=== PATIENT | male | born 1990 | race Two or more races ===

== ENCOUNTER 2023-03-14 02:44 | Inpatient (IN) | payer MEDICAID, OTHER ==
[~2023-03-14] VITALS: Ht 180.3 cm; Wt 95.4 kg
[2023-03-14 03:41] LABS: Basophils # (auto) 0.1 10 ^3/uL (0-0.2); Basophils % (auto) 0.4 % (0.0-2.0); Eosinophils # (auto) 0 10 ^3/uL (0-0.8); Hematocrit 41.8 % (41.0-53.0); Hemoglobin 14.2 g/dL (13.5-17.5); Lymphocytes # (auto) 1.4 10 ^3/uL (0.4-5.4); Lymphocytes % (auto) 7.7 % (10.0-50.0); Mean Corpuscular Hemoglobin 28.3 pg (28.0-32.0); Mean Corpuscular Volume 83.2 fL (80.0-100.0); Monocytes # (auto) 2.1 10 ^3/uL (0-1.3); Monocytes % (auto) 11.7 % (0.0-12.0); Neutrophils # (auto) 14.4 10 ^3/uL (1.6-8.6); Neutrophils % (auto) 80.2 % (37.0-80.0); Red Blood Cells 5.02 10^6/uL (4.5-5.90); Red Cell Distribution Width 14.7 % (11.8-14.3); White Blood Cell 17.9 10^3/uL (4.4-10.8)
[2023-03-14 04:01] LABS: Potassium 3.5 mmol/L (3.5-5.1)
[2023-03-14 04:06] LABS: Urine Bacteria NONE SEEN /hpf (None Seen); Urine Blood Negative /uL (Negative); Urine Specific Gravity 1.006 (1.001-1.035); Urine WBC 1 /hpf (0 - 3)
[2023-03-14 04:08] LABS: Albumin 3.1 g/dL (3.4-5.0); BUN/Creatinine Ratio 6.7 (10.0-20.0); Bilirubin, Total 0.7 mg/dL (0.2-1.0); Calcium 9.2 mg/dL (8.5-10.1); Total Protein 8.2 g/dL (6.4-8.2)
[2023-03-14] MEDS ORDERED: metroNIDAZOLE 500MG/100ML 100 ML IV ONE (04:30)
[2023-03-14] MEDS ORDERED: PIPERACILLIN-TAZOB 3.375GM 100 ML IV ONE (04:30)
[2023-03-14] MEDS ORDERED: LACTATED RINGER'S 2,850 ML IV ONE (04:30)
[2023-03-14] MEDS ORDERED: ONDANSETRON HCL 4 MG/2 ML VIAL IV ONE ×3 (06:00→10:30)
[2023-03-14] MEDS ORDERED: MORPHINE SULFATE 4 MG/ML SYR/VIAL IV ONE ×3 (06:00→10:30)
[2023-03-14 06:59] LABS: INR 1.14 (0.9-1.15)
[2023-03-14 09:06] VITALS: PULSE 98; RESP 20; O2SAT 97
[2023-03-14] MEDS ORDERED: ONDANSETRON HCL 4 MG/2 ML VIAL IV PRN (10:30)
[2023-03-14] MEDS: SODIUM CHLORIDE 0.9% 1,000 ML IV SCH ×2 (10:44→17:13)
[2023-03-14] MEDS ORDERED: fentaNYL CITRATE 100 MCG/2 ML VL IV ONE (11:00)
[2023-03-14] MEDS ORDERED: MIDAZOLAM HCL 2MG/2ML 2ml VIAL (1mg/ml) IV ONE (11:00)
[2023-03-14 11:34] LABS: Alcohol, Urine < 3.0 mg/dL (0-10); Amphetamine Screen, Urine NEGATIVE (NEGATIVE); Barbiturate Scree,Urine NEGATIVE (NEGATIVE); Benzodiazephine Screen, Urine NEGATIVE (NEGATIVE); Cannabinoid Screen, Urine POSITIVE (NEGATIVE); Cocaine Screen, Urine NEGATIVE (NEGATIVE); Opiate Scree,Urine NEGATIVE (NEGATIVE); Phencyclidine Screen, Urine NEGATIVE (NEGATIVE)
[2023-03-14] MEDS ORDERED: LIDOCAINE 2%HCL (LOCAL ANESTH.) INJ 10ml MDV ONE (12:59)
[2023-03-14] MEDS: PIPERACILLIN-TAZOB 3.375GM 100 ML IV SCH ×2 (13:35→18:09)
[2023-03-14] MEDS: MORPHINE SULFATE INJ 2 MG/ml SYRG IV PRN (13:36)
[2023-03-14] MEDS: metroNIDAZOLE 500MG/100ML 100 ML IV SCH ×2 (15:12→22:11)
[2023-03-15] MEDS: SODIUM CHLORIDE 0.9% 1,000 ML IV SCH ×4 (00:34→20:18)
[2023-03-15] MEDS: PIPERACILLIN-TAZOB 3.375GM 100 ML IV SCH ×4 (00:35→18:20)
[2023-03-15] MEDS: metroNIDAZOLE 500MG/100ML 100 ML IV SCH ×3 (06:00→22:23)
[2023-03-15 06:34] LABS: Basophils # (auto) 0 10 ^3/uL (0-0.2); Basophils % (auto) 0.2 % (0.0-2.0); Eosinophils # (auto) 0 10 ^3/uL (0-0.8); Hematocrit 38.6 % (41.0-53.0); Hemoglobin 12.9 g/dL (13.5-17.5); Lymphocytes % (auto) 16.1 % (10.0-50.0); Mean Corpuscular Hemoglobin 27.9 pg (28.0-32.0); Mean Corpuscular Hgb Conc. 33.4 g/dL (32.0-36.0); Mean Corpuscular Volume 83.7 fL (80.0-100.0); Monocytes % (auto) 8.3 % (0.0-12.0); Neutrophils # (auto) 9.4 10 ^3/uL (1.6-8.6); Neutrophils % (auto) 75.4 % (37.0-80.0); Red Blood Cells 4.61 10^6/uL (4.5-5.90); White Blood Cell 12.5 10^3/uL (4.4-10.8)
[2023-03-15 06:42] LABS: Potassium 3.5 mmol/L (3.5-5.1)
[2023-03-15 06:49] LABS: Albumin 2.5 g/dL (3.4-5.0); BUN/Creatinine Ratio 10.7 (10.0-20.0); Bilirubin, Total 0.7 mg/dL (0.2-1.0); Calcium 8.6 mg/dL (8.5-10.1); Total Protein 7.3 g/dL (6.4-8.2)
[2023-03-15 09:13] VITALS: PULSE 76; RESP 25; O2SAT 98
[2023-03-15] MEDS ORDERED: PANTOPRAZOLE 40 MG/10 ML VIAL INJ IV SCH (10:00)
[2023-03-15 19:25] VITALS: PULSE 79; RESP 23; O2SAT 98
[2023-03-16] VITALS (7 sets, daily range): BP systolic 133–151; BP diastolic 75–91; PULSE 67–80; RESP 17–19; TEMP 97.4–98.6; O2SAT 95–98
[2023-03-16] MEDS: PIPERACILLIN-TAZOB 3.375GM 100 ML IV SCH ×2 (00:47→06:40)
[2023-03-16] MEDS: MORPHINE SULFATE INJ 2 MG/ml SYRG IV PRN (02:04)
[2023-03-16] MEDS: SODIUM CHLORIDE 0.9% 1,000 ML IV SCH ×4 (02:05→18:45)
[2023-03-16 06:05] LABS: Basophils # (auto) 0 10 ^3/uL (0-0.2); Basophils % (auto) 0.2 % (0.0-2.0); Eosinophils # (auto) 0 10 ^3/uL (0-0.8); Eosinophils % (auto) 0.1 % (0.0-7.0); Hematocrit 38.6 % (41.0-53.0); Hemoglobin 12.7 g/dL (13.5-17.5); Lymphocytes # (auto) 1.3 10 ^3/uL (0.4-5.4); Lymphocytes % (auto) 10.4 % (10.0-50.0); Mean Corpuscular Hemoglobin 27.7 pg (28.0-32.0); Monocytes % (auto) 8.3 % (0.0-12.0); Red Blood Cells 4.59 10^6/uL (4.5-5.90); Red Cell Distribution Width 15.1 % (11.8-14.3); White Blood Cell 12.3 10^3/uL (4.4-10.8)
[2023-03-16 06:16] LABS: Potassium 3.7 mmol/L (3.5-5.1)
[2023-03-16 06:25] LABS: Albumin 2.5 g/dL (3.4-5.0); BUN/Creatinine Ratio 14.3 (10.0-20.0); Bilirubin, Total 0.5 mg/dL (0.2-1.0); Calcium 8.1 mg/dL (8.5-10.1)
[2023-03-16] MEDS: metroNIDAZOLE 500MG/100ML 100 ML IV SCH ×3 (06:40→20:58)
[2023-03-16] MEDS ORDERED: CEFTRIAXONE SODIUM 2 GM in D5W 5% 100 ML IV ONE (12:00)
[2023-03-17] MEDS: MORPHINE SULFATE INJ 2 MG/ml SYRG IV PRN ×2 (04:53→23:52)
[2023-03-17 05:00] VITALS: BP 132/83; PULSE 69; RESP 18; TEMP 98.3; O2SAT 95
[2023-03-17] MEDS: metroNIDAZOLE 500MG/100ML 100 ML IV SCH ×3 (05:48→21:59)
[2023-03-17 06:42] LABS: Basophils # (auto) 0 10 ^3/uL (0-0.2); Basophils % (auto) 0.2 % (0.0-2.0); Eosinophils # (auto) 0 10 ^3/uL (0-0.8); Eosinophils % (auto) 0.2 % (0.0-7.0); Hematocrit 39.7 % (41.0-53.0); Hemoglobin 13.2 g/dL (13.5-17.5); Lymphocytes # (auto) 1.4 10 ^3/uL (0.4-5.4); Monocytes % (auto) 7.4 % (0.0-12.0)
[2023-03-17 06:44] LABS: Lymphocytes % (auto) 12.3 % (10.0-50.0); Mean Corpuscular Hemoglobin 27.8 pg (28.0-32.0); Mean Corpuscular Hgb Conc. 33.4 g/dL (32.0-36.0); Mean Corpuscular Volume 83.4 fL (80.0-100.0); Monocytes # (auto) 0.8 10 ^3/uL (0-1.3); Neutrophils # (auto) 9.1 10 ^3/uL (1.6-8.6); Neutrophils % (auto) 79.9 % (37.0-80.0); Nucleated Red Blood Cells % 0.1 %; Red Blood Cells 4.75 10^6/uL (4.5-5.90); Red Cell Distribution Width 15.1 % (11.8-14.3); White Blood Cell 11.3 10^3/uL (4.4-10.8)
[2023-03-17 06:47] LABS: Calcium 8.5 mg/dL (8.5-10.1); Potassium 3.8 mmol/L (3.5-5.1)
[2023-03-17 06:53] LABS: Albumin 2.7 g/dL (3.4-5.0); BUN/Creatinine Ratio 9.5 (10.0-20.0); Bilirubin, Total 0.4 mg/dL (0.2-1.0); Total Protein 7.4 g/dL (6.4-8.2)
[2023-03-17 08:00] VITALS: PULSE 74; PULSE 80; RESP 18; O2SAT 97
[2023-03-17 09:00] VITALS: BP 164/97; PULSE 74; RESP 17; TEMP 98.3; O2SAT 97
[2023-03-17] MEDS: CEFTRIAXONE SODIUM 2 GM in D5W 5% 100 ML IV SCH (11:14)
[2023-03-17] MEDS: ENALAPRIL MALEATE 2.5 MG TAB PO SCH ×2 (11:14→22:00)
[2023-03-17] MEDS: SODIUM CHLORIDE 0.9% 1,000 ML IV SCH ×2 (11:15→22:00)
[2023-03-17 17:00] VITALS: BP 158/91; PULSE 84; RESP 17; TEMP 98.4; O2SAT 98
[2023-03-17] MEDS: hydrALAZINE HCL 20 MG/ML VL IV PRN (17:56)
[2023-03-17 20:00] VITALS: PULSE 96
[2023-03-17 22:00] VITALS: BP 151/97; PULSE 124; RESP 20; TEMP 99; O2SAT 96
[2023-03-18] VITALS (9 sets, daily range): BP systolic 128–154; BP diastolic 66–95; PULSE 85–112; RESP 17–20; TEMP 97.5–98.6; O2SAT 95–97
[2023-03-18] MEDS: metroNIDAZOLE 500MG/100ML 100 ML IV SCH ×3 (06:14→21:35)
[2023-03-18] MEDS: hydrALAZINE HCL 20 MG/ML VL IV PRN (06:17)
[2023-03-18] MEDS: CEFTRIAXONE SODIUM 2 GM in D5W 5% 100 ML IV SCH (09:20)
[2023-03-18] MEDS: ENALAPRIL MALEATE 2.5 MG TAB PO SCH ×2 (09:24→21:35)
[2023-03-18] MEDS: SODIUM CHLORIDE 0.9% 1,000 ML IV SCH ×2 (13:48→23:51)
[2023-03-19] VITALS (7 sets, daily range): BP systolic 122–154; BP diastolic 71–87; PULSE 79–94; RESP 17–19; TEMP 98.2–98.4; O2SAT 95–100
[2023-03-19] MEDS: metroNIDAZOLE 500MG/100ML 100 ML IV SCH ×3 (06:00→22:08)
[2023-03-19] MEDS: ENALAPRIL MALEATE 2.5 MG TAB PO SCH ×2 (09:12→22:07)
[2023-03-19] MEDS: CEFTRIAXONE SODIUM 2 GM in D5W 5% 100 ML IV SCH (09:12)
[2023-03-19] MEDS: SODIUM CHLORIDE 0.9% 1,000 ML IV SCH (13:25)
[2023-03-20] VITALS (7 sets, daily range): BP systolic 127–146; BP diastolic 64–89; PULSE 66–99; RESP 15–20; TEMP 97.9–99.3; O2SAT 95–100
[2023-03-20] MEDS: ACETAMINOPHEN 325 MG TAB PO PRN ×3 (04:30→20:07)
[2023-03-20] MEDS: metroNIDAZOLE 500MG/100ML 100 ML IV SCH ×3 (05:33→21:12)
[2023-03-20] MEDS: MORPHINE SULFATE INJ 2 MG/ml SYRG IV PRN (07:00)
[2023-03-20] MEDS: ENALAPRIL MALEATE 2.5 MG TAB PO SCH ×2 (09:13→21:13)
[2023-03-20] MEDS: CEFTRIAXONE SODIUM 2 GM in D5W 5% 100 ML IV SCH (09:14)
[2023-03-21] MEDS: ACETAMINOPHEN 325 MG TAB PO PRN ×2 (02:07→19:51)
[2023-03-21 05:00] VITALS: BP 124/74; PULSE 94; RESP 18; TEMP 98; O2SAT 99
[2023-03-21 06:19] LABS: Basophils # (auto) 0 10 ^3/uL (0-0.2); Eosinophils # (auto) 0 10 ^3/uL (0-0.8)
[2023-03-21] MEDS: metroNIDAZOLE 500MG/100ML 100 ML IV SCH ×3 (06:20→22:17)
[2023-03-21 06:21] LABS: Basophils % (auto) 0.1 % (0.0-2.0); Mean Corpuscular Hemoglobin 28.1 pg (28.0-32.0); Mean Corpuscular Hgb Conc. 33.4 g/dL (32.0-36.0); Monocytes # (auto) 1.3 10 ^3/uL (0-1.3); Monocytes % (auto) 7.1 % (0.0-12.0); Neutrophils # (auto) 14.9 10 ^3/uL (1.6-8.6); Neutrophils % (auto) 81.8 % (37.0-80.0); Red Blood Cells 5.36 10^6/uL (4.5-5.90); Red Cell Distribution Width 14.9 % (11.8-14.3); White Blood Cell 18.2 10^3/uL (4.4-10.8)
[2023-03-21 06:27] LABS: Potassium 4.6 mmol/L (3.5-5.1)
[2023-03-21 06:34] LABS: Albumin 3.1 g/dL (3.4-5.0); BUN/Creatinine Ratio 6.3 (10.0-20.0); Bilirubin, Total 0.5 mg/dL (0.2-1.0); Calcium 8.9 mg/dL (8.5-10.1); Magnesium 2.7 mg/dL (1.6-2.6); Total Protein 8.1 g/dL (6.4-8.2)
[2023-03-21 08:23] VITALS: BP 136/84; PULSE 78; RESP 20; TEMP 97.7; O2SAT 100
[2023-03-21] MEDS: CEFTRIAXONE SODIUM 2 GM in D5W 5% 100 ML IV SCH (09:19)
[2023-03-21] MEDS: ENALAPRIL MALEATE 2.5 MG TAB PO SCH ×2 (09:19→22:16)
[2023-03-21 13:00] VITALS: BP 118/66; PULSE 108; RESP 20; TEMP 98; O2SAT 96
[2023-03-21 17:00] VITALS: BP 129/79; PULSE 92; RESP 19; TEMP 98.3; O2SAT 98
[2023-03-21 22:00] VITALS: BP 155/82; PULSE 82; RESP 22; TEMP 98.5; O2SAT 97
[2023-03-22 05:00] VITALS: BP 120/81; PULSE 78; RESP 22; TEMP 98.3; O2SAT 99
[2023-03-22] MEDS: metroNIDAZOLE 500MG/100ML 100 ML IV SCH ×3 (05:40→22:25)
[2023-03-22] MEDS: ACETAMINOPHEN 325 MG TAB PO PRN (05:40)
[2023-03-22 06:25] LABS: Basophils # (auto) 0 10 ^3/uL (0-0.2); Basophils % (auto) 0.3 % (0.0-2.0); Eosinophils % (auto) 0.4 % (0.0-7.0); Lymphocytes # (auto) 2.4 10 ^3/uL (0.4-5.4); Mean Corpuscular Hemoglobin 27.8 pg (28.0-32.0); Neutrophils % (auto) 70.8 % (37.0-80.0)
[2023-03-22 06:27] LABS: Eosinophils # (auto) 0.1 10 ^3/uL (0-0.8); Hematocrit 42.4 % (41.0-53.0); Hemoglobin 14.1 g/dL (13.5-17.5); Lymphocytes % (auto) 20.2 % (10.0-50.0); Mean Corpuscular Hgb Conc. 33.3 g/dL (32.0-36.0); Mean Corpuscular Volume 83.6 fL (80.0-100.0); Monocytes % (auto) 8.3 % (0.0-12.0); Neutrophils # (auto) 8.4 10 ^3/uL (1.6-8.6); Nucleated Red Blood Cells % 0.1 %; Red Blood Cells 5.07 10^6/uL (4.5-5.90); Red Cell Distribution Width 15.1 % (11.8-14.3); White Blood Cell 11.8 10^3/uL (4.4-10.8)
[2023-03-22 09:00] VITALS: BP 133/78; PULSE 78; RESP 18; TEMP 98.2; O2SAT 99
[2023-03-22] MEDS: CEFTRIAXONE SODIUM 2 GM in D5W 5% 100 ML IV SCH (10:12)
[2023-03-22] MEDS: ENALAPRIL MALEATE 2.5 MG TAB PO SCH ×2 (10:13→22:26)
[2023-03-22 13:00] VITALS: BP 150/89; PULSE 78; RESP 18; TEMP 98.7; O2SAT 97
[2023-03-22 17:00] VITALS: BP 159/66; PULSE 87; RESP 18; TEMP 98.2; O2SAT 99
[2023-03-22 20:00] VITALS: PULSE 83; RESP 18
[2023-03-22 22:00] VITALS: BP 150/84; PULSE 83; RESP 18; TEMP 98.7; O2SAT 98
[2023-03-23] MEDS: metroNIDAZOLE 500MG/100ML 100 ML IV SCH ×3 (02:10→18:55)
[2023-03-23 05:00] VITALS: BP 132/76; PULSE 78; RESP 18; TEMP 98.6; O2SAT 100
[2023-03-23 06:50] LABS: Basophils # (auto) 0.1 10 ^3/uL (0-0.2); Eosinophils # (auto) 0.1 10 ^3/uL (0-0.8); Eosinophils % (auto) 0.6 % (0.0-7.0); Monocytes # (auto) 0.6 10 ^3/uL (0-1.3); Neutrophils # (auto) 6.3 10 ^3/uL (1.6-8.6); Nucleated Red Blood Cells % 0.1 %
[2023-03-23 06:52] LABS: Basophils % (auto) 0.6 % (0.0-2.0); Hematocrit 45.2 % (41.0-53.0); Hemoglobin 15.4 g/dL (13.5-17.5); Lymphocytes # (auto) 2.3 10 ^3/uL (0.4-5.4); Lymphocytes % (auto) 24.4 % (10.0-50.0); Mean Corpuscular Hemoglobin 28.3 pg (28.0-32.0); Mean Corpuscular Volume 83.3 fL (80.0-100.0); Monocytes % (auto) 6.9 % (0.0-12.0); Neutrophils % (auto) 67.5 % (37.0-80.0); Red Blood Cells 5.43 10^6/uL (4.5-5.90); Red Cell Distribution Width 14.9 % (11.8-14.3); White Blood Cell 9.3 10^3/uL (4.4-10.8)
[2023-03-23 06:59] LABS: Calcium 9.4 mg/dL (8.5-10.1); Potassium 4.6 mmol/L (3.5-5.1)
[2023-03-23 07:03] LABS: BUN/Creatinine Ratio 12.8 (10.0-20.0)
[2023-03-23 09:00] VITALS: BP 135/79; PULSE 77; RESP 18; TEMP 98.3; O2SAT 94
[2023-03-23] MEDS: CEFTRIAXONE SODIUM 2 GM in D5W 5% 100 ML IV SCH (10:59)
[2023-03-23] MEDS: ENALAPRIL MALEATE 2.5 MG TAB PO SCH ×2 (10:59→21:29)
[2023-03-23 17:00] VITALS: BP 119/75; PULSE 87; RESP 18; TEMP 98; O2SAT 96
[2023-03-23 22:00] VITALS: BP 115/72; PULSE 84; RESP 18; TEMP 98.3; O2SAT 95
[2023-03-24] MEDS: metroNIDAZOLE 500MG/100ML 100 ML IV SCH ×2 (02:47→10:51)
[2023-03-24 05:00] VITALS: BP 142/82; PULSE 82; RESP 18; TEMP 98.1; O2SAT 100
[2023-03-24 05:56] LABS: Eosinophils # (auto) 0.1 10 ^3/uL (0-0.8); Hemoglobin 14.9 g/dL (13.5-17.5); Monocytes # (auto) 0.6 10 ^3/uL (0-1.3); Neutrophils # (auto) 6.3 10 ^3/uL (1.6-8.6); Nucleated Red Blood Cells % 0.1 %; White Blood Cell 9.7 10^3/uL (4.4-10.8)
[2023-03-24 05:58] LABS: Basophils # (auto) 0.1 10 ^3/uL (0-0.2); Basophils % (auto) 0.6 % (0.0-2.0); Eosinophils % (auto) 0.8 % (0.0-7.0); Hematocrit 44.9 % (41.0-53.0); Lymphocytes # (auto) 2.6 10 ^3/uL (0.4-5.4); Lymphocytes % (auto) 27.2 % (10.0-50.0); Mean Corpuscular Hemoglobin 27.8 pg (28.0-32.0); Mean Corpuscular Hgb Conc. 33.1 g/dL (32.0-36.0); Mean Corpuscular Volume 84.1 fL (80.0-100.0); Neutrophils % (auto) 65.4 % (37.0-80.0); Red Blood Cells 5.34 10^6/uL (4.5-5.90); Red Cell Distribution Width 14.8 % (11.8-14.3)
[2023-03-24 08:00] VITALS: PULSE 75; RESP 14; O2SAT 97
[2023-03-24 08:48] VITALS: BP 138/87; PULSE 75; RESP 14; TEMP 97.6; O2SAT 97
[2023-03-24] MEDS: ENALAPRIL MALEATE 2.5 MG TAB PO SCH (10:50)
[2023-03-24] MEDS: CEFTRIAXONE SODIUM 2 GM in D5W 5% 100 ML IV SCH (10:51)
[2023-03-24] MEDS ORDERED: METR-344 PO ×5 (11:39→15:16)
[2023-03-24] MEDS ORDERED: ENAL1TAB42 PO ×5 (11:39→15:16)
[2023-03-24] MEDS ORDERED: CEFD300C2 PO ×5 (11:39→15:16)
[2023-03-24 13:00] VITALS: BP 126/86; PULSE 87; RESP 14; TEMP 97.5; O2SAT 96
[2023-03-24 15:34] VITALS: BP 138/87; PULSE 84; RESP 14; TEMP 98.3; O2SAT 99
== END 2023-03-24 16:31 | disposition home or self-care (01) | DRG 871 ==
LOC: ER 02:44 → TELE 10:34 → TELE-WESTW 03-15 22:50 → WEST WING 03-20 01:58
PROVIDERS: ADMIT Internal Medicine; ATTEND Internal Medicine
PROC: 0W9J30Z Drainage of Pelvic Cavity with Drainage Device, Percutaneous Approach (ICD-10-PCS; principal; 2023-03-14)
DX: A41.9 Sepsis, unspecified organism (principal); K35.33 Acute appendicitis with perforation, localized peritonitis, and gangrene, with abscess; E44.0 Moderate protein-calorie malnutrition; B96.20 Unspecified Escherichia coli [E. coli] as the cause of diseases classified elsewhere; F41.9 Anxiety disorder, unspecified; R74.01 Elevation of levels of liver transaminase levels; Z87.891 Personal history of nicotine dependence; Z68.29 Body mass index [BMI] 29.0-29.9, adult
CPT/HCPCS: 10005; 36415; 72192; 74176; 77012; 80048; 80053; 80307; 81001; 82570; 83605; 83690; 83735; 84560; 85025; 85610; 85730; 87040; 87077; 87186; 87205; 96365; 96368; 96375; 96376; C9113; G0378; J0696; J2001; J2250; J2405; J2543; J3490; J7060

== ENCOUNTER 2023-06-13 08:49 | Emergency (ER) | payer MEDICAID ==
[~2023-06-13] VITALS: Ht 182.9 cm; Wt 95.0 kg
[~2023-06-13 08:49] MED LIST: CEFD300C2 PO; ENAL1TAB42 PO; METR-344 PO
[2023-06-13 09:07] VITALS: PULSE 86; RESP 19; O2SAT 95
[2023-06-13 09:24] LABS: Basophils # (auto) 0 10 ^3/uL (0-0.2); Basophils % (auto) 0.7 % (0.0-2.0); Eosinophils # (auto) 0 10 ^3/uL (0-0.8); Eosinophils % (auto) 0.4 % (0.0-7.0); Hematocrit 48.2 % (41.0-53.0); Hemoglobin 16.4 g/dL (13.5-17.5); Lymphocytes # (auto) 2.1 10 ^3/uL (0.4-5.4); Mean Corpuscular Hemoglobin 28.4 pg (28.0-32.0); Mean Corpuscular Hgb Conc. 34.1 g/dL (32.0-36.0); Mean Corpuscular Volume 83.2 fL (80.0-100.0); Monocytes # (auto) 0.4 10 ^3/uL (0-1.3); Monocytes % (auto) 5.6 % (0.0-12.0); Neutrophils # (auto) 4.3 10 ^3/uL (1.6-8.6); Neutrophils % (auto) 62.3 % (37.0-80.0); Nucleated Red Blood Cells % 0.2 %; Red Cell Distribution Width 15.1 % (11.8-14.3); White Blood Cell 6.9 10^3/uL (4.4-10.8)
[2023-06-13 09:50] LABS: Alanine Aminotransferase 25 U/L (7-40); Albumin 4.7 g/dL (3.2-4.8); Alkaline Phosphatase 65 U/L (46-116); Anion Gap 11 (5-15); Aspartate Aminotransferase 14 U/L (13-40); BUN/Creatinine Ratio 10.5 (10.0-20.0); Blood Urea Nitrogen 10 mg/dL (9-23); Calcium 9.7 mg/dL (8.5-10.1); Carbon Dioxide 22 mmol/L (20-30); Chloride 106 mmol/L (98-107); Glucose 104 mg/dL (74-106); Potassium 3.6 mmol/L (3.5-5.1); Sodium 139 mmol/L (136-145)
[2023-06-13 09:51] LABS: Bilirubin, Total 0.8 mg/dL (0.2-1.0); Total Protein 7.8 g/dL (5.7-8.2)
[2023-06-13 10:18] VITALS: TEMP 97.7
[2023-06-13 10:34] LABS: Urine Bacteria NONE SEEN /hpf (None Seen); Urine Blood Negative /uL (Negative); Urine Clarity HAZY (Clear); Urine Protein, UAD 1+ (Negative); Urine Urobilinogen Normal (Negative); Urine WBC 1 /hpf (0 - 3)
[2023-06-13 10:37] LABS: Urine Color Yellow (Yellow)
[2023-06-13 10:53] LABS: Amphetamine Screen, Urine Neg (NEGATIVE); Barbiturate Scree,Urine Neg (NEGATIVE); Benzodiazephine Screen, Urine Neg (NEGATIVE)
[2023-06-13 10:54] LABS: Cannabinoid Screen, Urine Pos (NEGATIVE); Cocaine Screen, Urine Neg (NEGATIVE); Opiate Scree,Urine Neg (NEGATIVE); Phencyclidine Screen, Urine Neg (NEGATIVE)
[2023-06-13 11:56] VITALS: BP 144/83; PULSE 71; RESP 18; O2SAT 95
== END 2023-06-13 11:57 | disposition home or self-care (01) ==
LOC: EDBD 08:49 → ER 08:49
DX: G40.89 Other seizures (principal); F12.90 Cannabis use, unspecified, uncomplicated; I10 Essential (primary) hypertension; Z90.49 Acquired absence of other specified parts of digestive tract
CPT/HCPCS: 36415; 70450; 71045; 80053; 80307; 81001; 83690; 84484; 85025; 93005

== ENCOUNTER 2023-08-14 15:32 | Inpatient (IN) | payer MEDICAID ==
[~2023-08-14] VITALS: Ht 180.3 cm; Wt 101.7 kg
[2023-08-14] MEDS ORDERED: levETIRAcetam 1000 mg/100ml 100 ML IV ONE (17:15)
[2023-08-14 17:22] LABS: Basophils # (auto) 0 10 ^3/uL (0-0.2); Basophils % (auto) 0.1 % (0.0-2.0); Eosinophils # (auto) 0 10 ^3/uL (0-0.8); Eosinophils % (auto) 0.1 % (0.0-7.0); Lymphocytes # (auto) 1.7 10 ^3/uL (0.4-5.4); Lymphocytes % (auto) 12.2 % (10.0-50.0); Mean Corpuscular Hemoglobin 27.6 pg (28.0-32.0); Mean Corpuscular Hgb Conc. 33.4 g/dL (32.0-36.0); Mean Corpuscular Volume 82.6 fL (80.0-100.0); Monocytes # (auto) 0.5 10 ^3/uL (0-1.3); Monocytes % (auto) 3.7 % (0.0-12.0); Neutrophils # (auto) 11.9 10 ^3/uL (1.6-8.6); Neutrophils % (auto) 83.9 % (37.0-80.0); Nucleated Red Blood Cells % 0.1 %; Red Blood Cells 6.17 10^6/uL (4.5-5.90); Red Cell Distribution Width 13.6 % (11.8-14.3); White Blood Cell 14.1 10^3/uL (4.4-10.8)
[2023-08-14 17:39] LABS: INR 1.01 (0.9-1.15); Prothrombin Time 10.6 sec (9.3-11.8)
[2023-08-14 17:42] LABS: Alanine Aminotransferase 52 U/L (7-40); Albumin 4.9 g/dL (3.2-4.8); Alkaline Phosphatase 75 U/L (46-116); Anion Gap 7 (5-15); Aspartate Aminotransferase 20 U/L (13-40); BUN/Creatinine Ratio 8.8 (10.0-20.0); Blood Alcohol < 3.0 mg/dL (<10); Blood Urea Nitrogen 8 mg/dL (9-23); Calcium 9.7 mg/dL (8.7-10.4); Carbon Dioxide 28 mmol/L (20-30); Chloride 101 mmol/L (98-107); Glucose 104 mg/dL (74-106); Lipase 37 U/L (12-53); Magnesium 2.2 mg/dL (1.6-2.6); Potassium 3.7 mmol/L (3.5-5.1); Sodium 136 mmol/L (136-145)
[2023-08-14 17:43] LABS: Acetaminophen < 2.0 UG/ML (10.0-20.0); Bilirubin, Total 0.7 mg/dL (0.2-1.0)
[2023-08-14] MEDS ORDERED: MORPHINE SULFATE INJ 2 MG/ml SYRG IV PRN (18:00)
[2023-08-14] MEDS ORDERED: ONDANSETRON HCL 4 MG/2 ML VIAL IV PRN (18:00)
[2023-08-14] MEDS ORDERED: NITROGLYCERIN 0.4 MG SL TAB SL PRN (18:00)
[2023-08-14 18:03] VITALS: PULSE 83; RESP 18; O2SAT 98
[2023-08-14 18:45] LABS: Salicylate < 3.0 mg/dL (2.8-20.0)
[2023-08-14] MEDS ORDERED: LORazepam 2MG/ML-1ML VIAL IV PRN (19:15)
[2023-08-14] MEDS ORDERED: hydrALAZINE HCL 20 MG/ML VL IV PRN (19:30)
[2023-08-14] MEDS ORDERED: ACETAMINOPHEN 500 MG TAB PO ONE (19:30)
[2023-08-14 19:45] VITALS: PULSE 78; RESP 12; O2SAT 98
[2023-08-14 20:10] LABS: Urine Bacteria FEW /hpf (None Seen); Urine Blood Negative /uL (Negative); Urine Clarity CLOUDY (Clear); Urine Protein, UAD Negative (Negative); Urine Urobilinogen Normal (Negative); Urine WBC 47 /hpf (0 - 3); Urine pH 5.5 (5.0-8.0)
[2023-08-14 20:12] LABS: Urine Color STRAW (Yellow)
[2023-08-14 20:16] LABS: Amphetamine Screen, Urine Neg (NEGATIVE); Benzodiazephine Screen, Urine Neg (NEGATIVE)
[2023-08-14 20:17] LABS: Barbiturate Scree,Urine Neg (NEGATIVE)
[2023-08-14 20:18] LABS: Cannabinoid Screen, Urine Neg (NEGATIVE); Cocaine Screen, Urine Neg (NEGATIVE); Opiate Scree,Urine Neg (NEGATIVE); Phencyclidine Screen, Urine Neg (NEGATIVE)
[2023-08-14] MEDS ORDERED: ACETAMINOPHEN 325 MG TAB PO ONE (21:00)
[2023-08-14] MEDS: ENALAPRIL MALEATE 2.5 MG TAB PO SCH (22:00)
[2023-08-15] MEDS: ACETAMINOPHEN 325 MG TAB PO PRN ×2 (02:47→23:06)
[2023-08-15 04:59] LABS: Basophils # (auto) 0 10 ^3/uL (0-0.2); Basophils % (auto) 0.3 % (0.0-2.0); Eosinophils # (auto) 0.1 10 ^3/uL (0-0.8); Eosinophils % (auto) 0.6 % (0.0-7.0); Hematocrit 46.9 % (41.0-53.0); Lymphocytes # (auto) 3.1 10 ^3/uL (0.4-5.4); Mean Corpuscular Hemoglobin 28.2 pg (28.0-32.0); Mean Corpuscular Volume 82.8 fL (80.0-100.0); Monocytes # (auto) 0.8 10 ^3/uL (0-1.3); Neutrophils # (auto) 5.5 10 ^3/uL (1.6-8.6); Neutrophils % (auto) 58.1 % (37.0-80.0); Nucleated Red Blood Cells % 0.1 %; Red Blood Cells 5.66 10^6/uL (4.5-5.90); Red Cell Distribution Width 13.4 % (11.8-14.3); White Blood Cell 9.4 10^3/uL (4.4-10.8)
[2023-08-15 05:03] LABS: Alanine Aminotransferase 48 U/L (7-40); Albumin 4.5 g/dL (3.2-4.8); Alkaline Phosphatase 72 U/L (46-116); Anion Gap 8 (5-15); Aspartate Aminotransferase 21 U/L (13-40); BUN/Creatinine Ratio 8.3 (10.0-20.0); Bilirubin, Total 0.6 mg/dL (0.2-1.0); Blood Urea Nitrogen 8 mg/dL (9-23); Calcium 9.2 mg/dL (8.7-10.4); Carbon Dioxide 27 mmol/L (20-30); Chloride 104 mmol/L (98-107); Glucose 105 mg/dL (74-106); Potassium 3.8 mmol/L (3.5-5.1); Sodium 139 mmol/L (136-145); Total Protein 7.2 g/dL (5.7-8.2)
[2023-08-15] MEDS ORDERED: cefTRIAXone 1GM/50ML D5W 50 ML IV SCH (09:00)
[2023-08-15] MEDS: levETIRAcetam 500 MG TAB PO SCH ×2 (09:07→21:41)
[2023-08-15] MEDS: ENALAPRIL MALEATE 2.5 MG TAB PO SCH ×2 (09:08→21:41)
[2023-08-15 09:38] VITALS: PULSE 66; RESP 16; O2SAT 97
[2023-08-15] MEDS ORDERED: LORazepam 2MG/ML-1ML VIAL IV PRN ×2 (10:00)
[2023-08-15 16:00] VITALS: BP 117/56; PULSE 93; RESP 16; TEMP 97.6; O2SAT 97
[2023-08-15 20:00] VITALS: PULSE 86; O2SAT 98
[2023-08-15 22:00] VITALS: BP 122/74; PULSE 81; RESP 17; TEMP 97.8; O2SAT 98
[2023-08-16 04:57] VITALS: BP 103/59; PULSE 64; RESP 16; TEMP 97.5; O2SAT 98
[2023-08-16 08:05] VITALS: PULSE 55; O2SAT 99
[2023-08-16 09:00] VITALS: BP 118/71; PULSE 51; RESP 18; TEMP 97.5; O2SAT 97
[2023-08-16] MEDS: levETIRAcetam 500 MG TAB PO SCH (09:33)
[2023-08-16] MEDS: ENALAPRIL MALEATE 2.5 MG TAB PO SCH (09:35)
[2023-08-16] MEDS ORDERED: KEP500T PO (15:07)
== END 2023-08-16 15:50 | disposition home or self-care (01) | DRG 53 ==
LOC: ER 15:32 → TELE 17:48 → TELE-CENTR 08-15 14:58
PROVIDERS: ADMIT Nurse Practitioner Family; ATTEND Internal Medicine
DX: G40.409 Other generalized epilepsy and epileptic syndromes, not intractable, without status epilepticus (principal); D72.829 Elevated white blood cell count, unspecified; E66.9 Obesity, unspecified; I10 Essential (primary) hypertension; Z68.31 Body mass index [BMI] 31.0-31.9, adult; N39.0 Urinary tract infection, site not specified; Z79.899 Other long term (current) drug therapy; Z82.49 Family history of ischemic heart disease and other diseases of the circulatory system; Z71.3 Dietary counseling and surveillance
CPT/HCPCS: 36415; 70450; 71045; 80053; 80307; 80320; 80329; 81001; 83690; 83735; 84484; 85025; 85610; 95819; 96365; 96367; G0378; J0696

== ENCOUNTER 2024-05-02 08:36 | Inpatient (IN) | payer MEDICAID ==
[~2024-05-02] VITALS: Ht 180.3 cm; Wt 115.0 kg
[~2024-05-02 08:36] MED LIST changes: +KEP500T PO
[2024-05-02 09:07] VITALS: PULSE 73; RESP 13; O2SAT 96
[2024-05-02 10:00] LABS: Urine Bacteria None Seen /hpf (None Seen)
[2024-05-02 10:09] LABS: Basophils # (auto) 0 10 ^3/uL (0-0.2); Basophils % (auto) 0.4 % (0.0-2.0); Eosinophils # (auto) 0 10 ^3/uL (0-0.8); Eosinophils % (auto) 0.3 % (0.0-7.0); Hematocrit 48.9 % (41.0-53.0); Hemoglobin 17.2 g/dL (13.5-17.5); Lymphocytes # (auto) 1.5 10 ^3/uL (0.4-5.4); Lymphocytes % (auto) 16.8 % (10.0-50.0); Mean Corpuscular Hemoglobin 28.7 pg (28.0-32.0); Mean Corpuscular Hgb Conc. 35.1 g/dL (32.0-36.0); Mean Corpuscular Volume 81.9 fL (80.0-100.0); Monocytes # (auto) 0.5 10 ^3/uL (0-1.3); Monocytes % (auto) 5.1 % (0.0-12.0); Neutrophils % (auto) 77.4 % (37.0-80.0); Nucleated Red Blood Cells % 0.2 %; Platelet Count (auto) 202 10^3/uL (140-450); Red Blood Cells 5.97 10^6/uL (4.5-5.90); Red Cell Distribution Width 14.4 % (11.8-14.3); White Blood Cell 9.1 10^3/uL (4.4-10.8)
[2024-05-02 10:23] LABS: Urine Blood Negative /uL (Negative); Urine Clarity Clear (Clear); Urine Color Light-Yellow (Yellow); Urine Protein, UAD Negative (Negative); Urine Specific Gravity 1.019 (1.001-1.035); Urine Urobilinogen Normal (Negative); Urine WBC <1 /hpf (0 - 3); Urine pH 5.5 (5.0-9.0)
[2024-05-02 10:31] LABS: Anion Gap 9 (5-15); Carbon Dioxide 23 mmol/L (20-30); Chloride 106 mmol/L (98-107); Sodium 138 mmol/L (136-145)
[2024-05-02 10:33] LABS: Calcium 9.7 mg/dL (8.7-10.4)
[2024-05-02 10:37] LABS: BUN/Creatinine Ratio 9.3 (10.0-20.0); Blood Urea Nitrogen 10 mg/dL (9-23); Glucose 126 mg/dL (74-106)
[2024-05-02] MEDS: SODIUM CHLORIDE 0.9% 1,000 ML IV ONE (10:53)
[2024-05-02] MEDS: levETIRAcetam 1000 mg/100ml 100 ML IV ONE (10:53)
[2024-05-02 11:21] LABS: Amphetamine Screen, Urine Neg (NEGATIVE)
[2024-05-02 11:22] LABS: Barbiturate Scree,Urine Neg (NEGATIVE); Benzodiazephine Screen, Urine Neg (NEGATIVE); Cocaine Screen, Urine Neg (NEGATIVE); Opiate Scree,Urine Neg (NEGATIVE); Phencyclidine Screen, Urine Neg (NEGATIVE)
[2024-05-02 11:23] LABS: Cannabinoid Screen, Urine Pos (NEGATIVE)
[2024-05-02 11:32] LABS: Albumin 4.6 g/dL (3.2-4.8); Bilirubin, Direct 0.1 mg/dL (<0.3); Bilirubin, Total 0.5 mg/dL (0.2-1.0); Total Protein 7.5 g/dL (5.7-8.2)
[2024-05-02] MEDS: POTASSIUM CHL 20 Meq TABLET PO ONE (11:49)
[2024-05-02 12:10] LABS: Lactic Acid w/Reflex 3.1 mmol/L (0.4-2.0)
[2024-05-02] MEDS ORDERED: ONDANSETRON HCL 4 MG/2 ML VIAL IV PRN (13:45)
[2024-05-02] MEDS: levETIRAcetam 1000 mg/100ml 100 ML IV SCH (13:45)
[2024-05-02] MEDS ORDERED: DOCUSATE SOD 100 MG CAP PO PRN (13:45)
[2024-05-02] MEDS ORDERED: HYDROmorphone HCL 2 MG/ML VL/or syr IV PRN (13:45)
[2024-05-02] MEDS ORDERED: ACETAMINOPHEN 325 MG TAB PO PRN (13:45)
[2024-05-02] MEDS: LACTATED RINGER'S 1,000 ML IV ONE (13:56)
[2024-05-02] MEDS: SODIUM CHLOR 0.9% PF (SALINE LOCK) 10ML VIAL/SYR IV SCH (13:59)
[2024-05-02 17:25] LABS: Chloride 109 mmol/L (98-107); Sodium 139 mmol/L (136-145)
[2024-05-02 17:26] LABS: Anion Gap 8 (5-15); Carbon Dioxide 22 mmol/L (20-30)
[2024-05-02 17:27] LABS: Calcium 9.1 mg/dL (8.7-10.4)
[2024-05-02 17:31] LABS: BUN/Creatinine Ratio 6.4 (10.0-20.0); Blood Urea Nitrogen 6 mg/dL (9-23); Glucose 140 mg/dL (74-106)
[2024-05-02 20:00] VITALS: PULSE 61; RESP 15; O2SAT 95
[2024-05-02] MEDS ORDERED: LORazepam 2MG/ML-1ML VIAL IV PRN (20:45)
[2024-05-02] MEDS: HYDROcodone-ACET 5/325MG TAB PO PRN (21:58)
[2024-05-02 23:36] VITALS: BP 145/86; PULSE 61; RESP 17; TEMP 98.4; O2SAT 96
[2024-05-03] VITALS (8 sets, daily range): BP systolic 127–140; BP diastolic 64–85; PULSE 53–71; RESP 17–19; TEMP 98.1–99; O2SAT 95–96
[2024-05-03] MEDS ORDERED: LISI2.5T47 PO (00:47)
[2024-05-03] MEDS: levETIRAcetam 500 MG TAB PO SCH (02:21)
[2024-05-03 05:53] LABS: Basophils # (auto) 0 10 ^3/uL (0-0.2); Basophils % (auto) 0.4 % (0.0-2.0); Eosinophils # (auto) 0 10 ^3/uL (0-0.8); Eosinophils % (auto) 0.2 % (0.0-7.0); Hematocrit 44.5 % (41.0-53.0); Hemoglobin 15.5 g/dL (13.5-17.5); Lymphocytes # (auto) 2.9 10 ^3/uL (0.4-5.4); Lymphocytes % (auto) 30.2 % (10.0-50.0); Mean Corpuscular Hemoglobin 28.7 pg (28.0-32.0); Mean Corpuscular Hgb Conc. 34.8 g/dL (32.0-36.0); Mean Corpuscular Volume 82.3 fL (80.0-100.0); Monocytes # (auto) 0.7 10 ^3/uL (0-1.3); Neutrophils # (auto) 5.9 10 ^3/uL (1.6-8.6); Neutrophils % (auto) 62.2 % (37.0-80.0); Nucleated Red Blood Cells % 0.1 %; Platelet Count (auto) 197 10^3/uL (140-450); White Blood Cell 9.5 10^3/uL (4.4-10.8)
[2024-05-03 06:09] LABS: Alanine Aminotransferase 37 U/L (7-40); Albumin 4.4 g/dL (3.2-4.8); Alkaline Phosphatase 71 U/L (46-116); Anion Gap 11 (5-15); BUN/Creatinine Ratio 6.8 (10.0-20.0); Blood Urea Nitrogen 7 mg/dL (9-23); Calcium 9.4 mg/dL (8.7-10.4); Carbon Dioxide 26 mmol/L (20-30); Chloride 105 mmol/L (98-107); Glucose 104 mg/dL (74-106); Sodium 142 mmol/L (136-145)
[2024-05-03 06:10] LABS: Aspartate Aminotransferase 17 U/L (13-40); Bilirubin, Total 0.8 mg/dL (0.2-1.0); Total Protein 7.1 g/dL (5.7-8.2)
[2024-05-03] MEDS: ENOXAPARIN SOD 40 MG/0.4 ML SYRINGE SC SCH (10:00)
[2024-05-03] MEDS ORDERED: LEVE100012 PO (12:40)
== END 2024-05-03 14:41 | disposition home or self-care (01) | DRG 53 ==
LOC: EDBD 08:36 → ER 08:36 → TELE 13:33 → TELE-WESTW 22:46
PROVIDERS: ADMIT Internal Medicine; ATTEND Family Medicine
DX: G40.409 Other generalized epilepsy and epileptic syndromes, not intractable, without status epilepticus (principal); E87.20 Acidosis, unspecified; E87.6 Hypokalemia; I10 Essential (primary) hypertension; F14.10 Cocaine abuse, uncomplicated; Z83.3 Family history of diabetes mellitus; Z82.49 Family history of ischemic heart disease and other diseases of the circulatory system
CPT/HCPCS: 36415; 70450; 71045; 72125; 80048; 80053; 80076; 80307; 81001; 82550; 83605; 83735; 84484; 85025; 93005; 96365; G0378

== ENCOUNTER 2024-09-14 18:08 | Emergency (ER) | payer MEDICAID ==
[~2024-09-14] VITALS: Ht 180.3 cm; Wt 100.0 kg
[~2024-09-14 18:08] MED LIST changes: -CEFD300C2 PO; -ENAL1TAB42 PO; +LEVE100012 PO; +LISI2.5T47 PO; -METR-344 PO
[2024-09-14 18:30] VITALS: PULSE 74; RESP 13; O2SAT 99
--- NOTE | 2024-09-14 18:52 | ED.PDOC ---
HPI (NEURO) HPI Comments 34-year-old in the ER via EMS for seizures. Patient has history of seizure disorder. Takes Vimpat 100mg BID regulalrly. States he hsa been compliant and not missed any doses. No recent illness. Last seizure episode was Jul 01, 2024. Had 2 episodes of tonic-clonic seizures today witnessed by mother who called EMS, both 1 minute in duration. Patient brought in for further evaluation and management. No oral trauma noted. Chief Complaint: Seizure Time Seen by MD: 18:49 Primary Care Provider: EARL, ROSALVA TELLES Reviewed Notes: Rides Attendant Notes Information Source: Patient Mode of Arrival: EMS Severity: Moderate Dizziness/Weakness Severity: Unable to do activities Headache Severity: Moderate Timing: Minutes Duration: Minutes Prehospital treatment: Oxygen Seizure Quality: Tonic-clonic Headache Quality: Throbbing, Aching Headache Location: Generalized Weakness Location: Generalized Numbness Location: Generalized Seizure Location: Generalized Onset: With light exertion Circumstances: Spontaneous Symptoms: Weakness Before: Normal During: LOC After: Confusion, Headache History of: Seizure Disorder Modifying factors: Nothing Associated Signs and Symptoms: Headache, Weakness Review of Systems REVIEW OF SYSTEMS: No fever, no chills, or fatigue HEENT: No sore throat, no earache, no congestion, no neck pain. Cardiac: No chest pain. No palpitations. Lungs: No shortness of breath, no cough. GI: No nausea, no vomiting, no diarrhea, no constipation, no abdominal pain : No dysuria, frequency, or urgency. No hematuria. Musculoskeletal: No joint pain , no joint swelling, no extremity edema. Skin: No rash, no itching. Neuro: (+) headache, no dizziness, no weakness Vital Signs Vital Signs Date Time Temp Pulse Resp B/P (MAP) Pulse Ox O2 Delivery O2 Flow Rate FiO2 09/14/24 21:00 55 15 117/67 (84) 95 09/14/24 20:37 98.3 09/14/24 19:10 Room Air* 0 21 Physical Exam General: Awake, alert and oriented. No acute distress. Skin: Skin in warm, dry and intact. Appropriate color for ethnicity. Nailbeds pink with no cyanosis. HEENT: The head is normocephalic and atraumatic. Conjunctivae are clear without exudates or hemorrhage. Sclera is non-icteric. EOM are intact. No signs of nys tagmus. Eyelids are normal in appearance without swelling or lesions. Oral mucosa is pink and moist. PERRLA Neck: The neck is supple with normal range of motion. No JVD. Cardiac: Heart rate and rhythm are normal. No murmurs, gallops, or rubs are auscultated. Respiratory: No signs of respiratory distress. Lung sounds are clear in all lobes bilaterally without rales, ronchi, or wheezes. Abdominal: Abdomen is soft, non-tender without distention. Bowel sounds are present and normoactive in all four quadrants. Extremities: Upper and lower extremities are atraumatic in appearance without deformity or edema. Neurological: The patient is awake, alert and oriented to person, place, and time with normal speech. Speech is clear. There is no facial asymmetry. Normal coordination Psychiatric: Appropriate mood and affect. Good judgement and insight. No visual or auditory hallucinations. Past Medical History PAST MEDICAL HISTORY: HTN, Seizures Surgical History: Appendectomy Family History Family History: Family hx of HTN Family History (Other): hyperlipidemia Social History Smoker: Non-Smoker Alcohol: Denies ETOH Use Drugs: Marijuana Lives In: Home EKG EKG : Pulse Rate (adult): 76 Cardiac Rhythm: NSR Was a procedure done? Was a procedure done?: No Differential Diagnosis (SZ) Seizure: Psychogenic Seizure, Hypoxemia, Idiopathic, Encephalopathy, Epilepsy- Break Through, Epilepsy-Status X-Ray, Labs, Meds, VS Vital Signs Date Time Temp Pulse Resp B/P (MAP) Pulse Ox O2 Delivery O2 Flow Rate FiO2 09/14/24 21:00 55 15 117/67 (84) 95 09/14/24 20:37 98.3 09/14/24 20:00 97.9 62 14 114/59 (77) 99 97.9 09/14/24 19:11 72 13 114/59 (77) 99 09/14/24 19:10 65 13 99 Room Air* 0 21 09/14/24 18:52 76 09/14/24 18:32 98.7 90 16 160/52 (88) 97 09/14/24 18:30 74 13 134/79 (97) 99 09/14/24 18:30 74 13 99 Room Air* 0 21 Lab Test 09/14/24 18:47 Range/Units White Blood Count 8.9 4.4-10.8 10^3/uL Red Blood Count 5.58 4.5-5.90 10^6/uL Hemoglobin 16.2 13.5-17.5 g/dL Hematocrit 47.5 41.0-53.0 % Mean Corpuscular Volume 85.2 80.0-100.0 fL Mean Corpuscular Hemoglobin 29.0 28.0-32.0 pg Mean Corpuscular Hemoglobin Concent 34.0 32.0-36.0 g/dL Red Cell Distribution Width 14.7 H 11.8-14.3 % Platelet Count 194 140-450 10^3/uL Mean Platelet Volume 9.6 6.9-10.8 fL Neutrophils (%) (Auto) 70.6 37.0-80.0 % Lymphocytes (%) (Auto) 22.9 10.0-50.0 % Monocytes (%) (Auto) 5.7 0.0-12.0 % Eosinophils (%) (Auto) 0.5 0.0-7.0 % Basophils (%) (Auto) 0.3 0.0-2.0 % Neutrophils # (Auto) 6.3 1.6-8.6 10 ^3/uL Lymphocytes # (Auto) 2.0 0.4-5.4 10 ^3/uL Monocytes # (Auto) 0.5 0-1.3 10 ^3/uL Eosinophils # (Auto) 0 0-0.8 10 ^3/uL Basophils # (Auto) 0 0-0.2 10 ^3/uL Nucleated Red Blood Cells 0.1 % Sodium Level 141 136-145 mmol/L Potassium Level 3.7 3.5-5.1 mmol/L Chloride Level 107 98-107 mmol/L Carbon Dioxide Level 21 20-31 mmol/L Anion Gap 13 5-15 Blood Urea Nitrogen 18 9-23 mg/dL Creatinine 1.08 0.700-1.30 mg/dL Glomerular Filtration Rate Calc 92 >90 mL/min BUN/Creatinine Ratio 16.7 10.0-20.0 Serum Glucose 89 74-106 mg/dL Calcium Level 9.8 8.7-10.4 mg/dL Total Bilirubin 0.3 0.2-1.0 mg/dL Aspartate Amino Transferase (AST) 41 H 13-40 U/L Alanine Aminotransferase (ALT) 48 H 7-40 U/L Alkaline Phosphatase 71 46-116 U/L Creatine Kinase 142 46-171 U/L Total Protein 7.1 5.7-8.2 g/dL Albumin 4.7 3.2-4.8 g/dL Lamotrigine (Lamictal) Level Pending Current Medications Medications (Trade) Dose Ordered Sig/Lucho Route Start Time Stop Time Status Last Admin Acetaminophen (Tylenol Tablet) 650 mg ONCE ONCE PO 09/14/24 20:30 09/14/24 20:31 DC 09/14/24 20:37 Time of 1ST Reevaluation: 18:51 Reevaluation 1ST: Unchanged Patient Education/Counseling: Diagnosis, Treatment, Other (DISCHARGE DIAGNOSIS AND FOLLOW UP RECOMMENDATIONS) Family Education/Counseling: No Family Present Departure 1 Departure Time of Disposition: 21:06 Impression: Primary Impression: Seizure Disposition: 01 HOME / SELF CARE / HOMELESS Condition: Stable Additional Instructions: ED DISCHARGE INSTRUCTIONS INSTRUCTIONS: PLEASE READ ALL INSTRUCTIONS PROVIDED IN THIS PACKET CAREFULLY. START TAKING VIMPAT 200 MG TWICE DAILY. FOLLOW UP WITH YOUR NEUROLOGIST FOR FURTHER EVALUATION AND REFILLS. ALTHOUGH YOU HAVE BEEN DISCHARGED FROM THE EMERGENCY DEPARTMENT, THIS DOES NOT MEAN THAT YOU HAVE A "CLEAN BILL OF HEALTH". []NO DEFINITIVE DIAGNOSIS FOR YOUR SYMPTOMS HAS BEEN MADE TODAY. IT IS POSSIBLE THAT YOU ARE IN THE PROCESS OF DEVELOPING A SERIOUS ILLNESS. THIS IS WHY YOU MUST RETURN TO THE ED WITHOUT FAIL IF ANY NEW OR WORSENING SYMPTOMS (ESPECIALLY IF YOUR SYMPTOMS INCLUDE CHEST PAIN, TROUBLE BREATHING, ABDOMINAL PAIN, FEVER, HEADACHE, CONFUSION, TROUBLE SEEING, OR TROUBLE WALKING) IT IS ALSO VERY IMPORTANT THAT YOU SEE A PRIMARY CARE DOCTOR WITHIN THE NEXT 3-5 DAYS TO FOLLOW UP. IF YOU ARE UNABLE TO GET AN APPOINTMENT, RETURN TO THE ED FOR RE-EVALUATION. SEIZURE EDUCATION SEIZURES ARE CAUSED BY ABNORMAL PATTERNS OF ELECTRICAL SIGNALS IN THE BRAIN. THEY ARE DIFFERENT FOR EACH PERSON. SEIZURES CAN AFFECT MOVEMENT, SPEECH, VISION, OR AWARENESS. SOME PEOPLE HAVE ONLY SLIGHT SHAKING OF A HAND AND DO NOT PASS OUT. OTHER PEOPLE MAY PASS OUT AND HAVE SHAKING OF THE WHOLE BODY. SOME PEOPLE APPEAR TO STARE INTO SPACE. THEY ARE AWAKE, BUT THEY CAN'T RESPOND NORMALLY. LATER, THEY MAY NOT REMEMBER WHAT HAPPENED. YOU MAY NEED TESTS TO IDENTIFY THE TYPE AND CAUSE OF THE SEIZURES. A SEIZURE MAY OCCUR ONLY ONCE, OR YOU MAY HAVE THEM MORE THAN ONE TIME. TAKING MEDICINES DIRECTED AND FOLLOWING UP WITH YOUR DOCTOR MAY HELP KEEP YOU FROM HAVING MORE SEIZURES. THE DOCTOR HAS CHECKED YOU CAREFULLY, BUT PROBLEMS CAN DEVELOP LATER. IF YOU NOTICE ANY PROBLEMS OR NEW SYMPTOMS, GET MEDICAL TREATMENT RIGHT AWAY. FOLLOW-UP CARE IS A WALTERS PART OF YOUR TREATMENT AND SAFETY. BE SURE TO MAKE AND GO TO ALL APPOINTMENTS, AND CALL YOUR DOCTOR IF YOU ARE HAVING PROBLEMS. IT'S ALSO A GOOD IDEA TO KNOW YOUR TEST RESULTS AND KEEP A LIST OF THE MEDICINES YOU TAKE. HOW CAN YOU CARE FOR YOURSELF AT HOME? BE SAFE WITH MEDICINES. TAKE YOUR MEDICINES EXACTLY PRESCRIBED. CALL YOUR DOCTOR IF YOU THINK YOU ARE HAVING A PROBLEM WITH YOUR MEDICINE. DO NOT DO ANY ACTIVITY THAT COULD BE DANGEROUS TO YOU OR OTHERS UNTIL YOUR DOCTOR SAYS IT IS SAFE TO DO SO. FOR EXAMPLE, DO NOT DRIVE A CAR, OPERATE MACHINERY, SWIM, OR CLIMB LADDERS. BE SURE THAT ANYONE TREATING YOU FOR ANY HEALTH PROBLEM KNOWS THAT YOU HAVE HAD A SEIZURE AND WHAT MEDICINES YOU ARE TAKING FOR IT. IDENTIFY AND AVOID THINGS THAT MAY MAKE YOU MORE LIKELY TO HAVE A SEIZURE. THESE MAY INCLUDE LACK OF SLEEP, ALCOHOL OR DRUG USE, STRESS, OR NOT EATING. IF POSSIBLE, TAKE A SHOWER INSTEAD OF A BATH. HAVING A SEIZURE WHILE IN A BATH CAN INCREASE THE RISK OF DROWNING. WHEN SHOULD YOU CALL FOR HELP? CALL 911 ANYTIME YOU THINK YOU MAY NEED EMERGENCY CARE. FOR EXAMPLE, CALL IF: YOU HAVE ANOTHER SEIZURE. YOU HAVE NEW SYMPTOMS, SUCH TROUBLE WALKING, SPEAKING, OR THINKING CLEARLY. CALL YOUR DOCTOR NOW OR SEEK IMMEDIATE MEDICAL CARE IF: YOU ARE NOT ACTING NORMALLY. WATCH CLOSELY FOR CHANGES IN YOUR HEALTH, AND BE SURE TO CONTACT YOUR DOCTOR IF YOU HAVE ANY PROBLEMS. e-Prescriptions Lacosamide (Vimpat) 200 Mg Tab 200 MG PO BID for 15 Days, #30 TAB Prov: HILARIO SOLOMON MD 09/14/24 Comments 34-year-old male with known seizure disorder and 2 witnessed seizures at home. Labs were reviewed. Unable to reach patient's neurologist Dr. Kaye. IV Vimpat not available will give extra 100 mg PO in the ED. PATIENT OBSERVED IN THE E MERGENCY DEPARTMENT WITH NO FURTHER SEIZURE, HE IS NEUROLOGICALLY INTACT. HE IS ASKING TO GO HOME. PATIENT WELL-APPEARING, NONTOXIC. ADVISED PROMPT FOLLOW-UP WITH PCP, RETURN TO THE ED WITH ANY NEW, WORSENING OR CONCERNING SYMPTOMS. DECISION REGARDING HOSPITALIZATION OR ESCALATION OF HOSPITAL LEVEL OF CARE: RISKS AND BENEFITS OF ADMISSION FOR FURTHER TREATMENT OF PATIENT'S CONDITION WAS CONSIDERED HOWEVER DUE TO PATIENT'S STABLE CONDITION PATIENT WILL BE DISCHARGED TO FOLLOW UP CLOSELY OR RETURN TO CARE FOR WORSENING OF CONDITION OR INABILITY TO FOLLOW UP. Number & Complexity of Problems Addressed 1 or more chronic illnesses with severe exacerbation, progression, or side effects of treatment: Seizure Amount and/or Complexity of Data to be Reviewed/Analyzed Tests reviewed: See diagnostics results section Documents reviewed: N/A Independent historian: PATIENT Independent interpretation of tests: NA Discussion of management or test interpretation with external physician/other qualified health nanny caregiver: Discussed with Dr. Rodas, nuerology. Recommendation is increase Vimpat to 200mg BID. Loading dose of 200 mg IV now. Follow up with neurologist as an outpatient. Critical Care Note Critical Care Time?: No Stability Stability form required: No I personally scribed for HILARIO SOLOMON MD ([email or web address]) on 09/14/24 at 18:52. Electronically submitted by Tc Rm ([facility]). I personally scribed for HILARIO SOLOMON MD ([email or web address]) on 09/14/24 at 19:33. Electronically submitted by Tc Rm ([employer] [facility]). HILARIO SOLOMON MD Sep 14, 2024 18:52
[2024-09-14 19:10] VITALS: PULSE 65; RESP 13; O2SAT 99
[2024-09-14 19:22] LABS: Basophils # (auto) 0 10 ^3/uL (0-0.2); Basophils % (auto) 0.3 % (0.0-2.0); Eosinophils # (auto) 0 10 ^3/uL (0-0.8); Eosinophils % (auto) 0.5 % (0.0-7.0); Hematocrit 47.5 % (41.0-53.0); Hemoglobin 16.2 g/dL (13.5-17.5); Lymphocytes % (auto) 22.9 % (10.0-50.0); Mean Corpuscular Volume 85.2 fL (80.0-100.0); Monocytes # (auto) 0.5 10 ^3/uL (0-1.3); Monocytes % (auto) 5.7 % (0.0-12.0); Neutrophils # (auto) 6.3 10 ^3/uL (1.6-8.6); Neutrophils % (auto) 70.6 % (37.0-80.0); Nucleated Red Blood Cells % 0.1 %; Platelet Count (auto) 194 10^3/uL (140-450); Red Blood Cells 5.58 10^6/uL (4.5-5.90); Red Cell Distribution Width 14.7 % (11.8-14.3); White Blood Cell 8.9 10^3/uL (4.4-10.8)
[2024-09-14 19:40] LABS: Albumin 4.7 g/dL (3.2-4.8); Alkaline Phosphatase 71 U/L (46-116); Anion Gap 13 (5-15); BUN/Creatinine Ratio 16.7 (10.0-20.0); Bilirubin, Total 0.3 mg/dL (0.2-1.0); Blood Urea Nitrogen 18 mg/dL (9-23); Calcium 9.8 mg/dL (8.7-10.4); Carbon Dioxide 21 mmol/L (20-31); Chloride 107 mmol/L (98-107); Creatine Kinase IFCC 142 U/L (46-171); Glucose 89 mg/dL (74-106); Potassium 3.7 mmol/L (3.5-5.1); Sodium 141 mmol/L (136-145); Total Protein 7.1 g/dL (5.7-8.2)
[2024-09-14 19:48] LABS: Alanine Aminotransferase 48 U/L (7-40); Aspartate Aminotransferase 41 U/L (13-40)
[2024-09-14 20:37] VITALS: TEMP 98.3
[2024-09-14] MEDS: ACETAMINOPHEN 325 MG TAB PO ONE (20:37)
[2024-09-14 21:00] VITALS: BP 117/67; PULSE 55; RESP 15; O2SAT 95
[2024-09-14] MEDS ORDERED: LACO200T PO (22:26)
--- NOTE | 2024-09-19 13:45 | ECG ---
[facility] Test Date: 2024-09-14 Test Time: 18:32:01 Pat Name: GEORGI QUEVEDO Department: ED Room: Gender: M Integrated Marketing Intern: SALINAS : 1990 Requested By: HILARIO SOLOMON Order Number: [id number] Reading MD: Measurements Intervals [place] Rate: 76 P: 35 VT: 161 QRS: 13 QRSD: 92 T: 21 QT: 380 QTc: 428 Interpretive Statements Sinus rhythm ST elev, probable normal early repol pattern Please click the below link to view image of tracing.
== END 2024-09-14 23:27 | disposition home or self-care (01) ==
LOC: EDBD 18:08 → ER 18:08 → EDUNIT# 18:08 → ER 23:22
DX: G40.909 Epilepsy, unspecified, not intractable, without status epilepticus (principal); I10 Essential (primary) hypertension; Z90.49 Acquired absence of other specified parts of digestive tract
CPT/HCPCS: 36415; 80053; 82542; 82550; 85025; 93005

== ENCOUNTER 2024-11-06 08:55 | Inpatient (IN) | payer MEDICAID ==
[~2024-11-06] VITALS: Ht 180.3 cm; Wt 100.0 kg
[~2024-11-06 08:55] MED LIST changes: +LACO200T PO
--- NOTE | 2024-11-06 09:04 | ECG ---
[facility] Test Date: 2024-11-06 Test Time: 08:58:03 Pat Name: GEORGI QUEVEDO Department: er Room: [address] [place] [address] Gender: M [employer] Member: maribel : 1990 Requested By: EMERGENCY EMERGENCY Order Number: [id number] Reading MD: Kobi Vigil Measurements Intervals [place] Rate: 86 P: 33 GA: 186 QRS: 20 QRSD: 94 T: 18 QT: 372 QTc: 445 Interpretive Statements Sinus rhythm ST elev, probable normal early repol pattern Baseline wander in lead(s) V4 Electronically Signed On 11-10-2024 17:37:06 PST by Kobi Vigil Please click the below link to view image of tracing.
--- NOTE | 2024-11-06 09:10 | ED.PDOC ---
HPI (NEURO) HPI Comments 34 year old male ELANA presents to the ED with chief complaint of seizure. EMS reports patient was witnessed by family to be experiencing a tonic-clonic seizure in bed today, lasting 2 minutes. EMS relays patient is currently on Vimpat and his last seizure occurred on 09/24/24. EMS states patient bit his tongue slightly during his seizure, but denies any further injury. Patient notes he does not remember anything prior to arriving in the ED. Patient denies any headache, dizziness, N/V, chest pain, or SOB. Chief Complaint: Seizure Time Seen by MD: 09:07 Primary Care Provider: UNKNOWN, NEURO ELFEGO Reviewed Notes: Nurses Notes, Transitional Studies Instructor Notes, Medications, Allergies Information Source: Patient, Emergency Med Personnel Mode of Arrival: EMS Severity: Moderate Headache Severity: None Timing: Hours Duration: Minutes Prehospital treatment: None Seizure Quality: Tonic-clonic Seizure Location: Generalized Onset: At rest Circumstances: Spontaneous Symptoms: Syncope Before: Normal During: LOC After: Confusion History of: Seizure Disorder Past Medical History PAST MEDICAL HISTORY: HTN, Seizures Surgical History: Appendectomy Family History Family History: Reviewed,noncontributory to illness, Family hx of HTN Family History (Other): hyperlipidemia Social History Smoker: Non-Smoker Alcohol: Denies ETOH Use Drugs: Marijuana Lives In: Home Constitutional: denies: chills, diaphoresis, fatigue, fever, malaise, sweats, weakness, others EENTM: denies: blurred vision, double vision, ear bleeding, ear discharge, ear drainage, ear pain, ear ringing, eye pain, eye redness, hearing loss, mouth pain, mouth swelling, nasal discharge, nose bleeding, nose congestion, nose pain, photophobia, tearing, throat pain, throat swelling, voice changes, others Respiratory: denies: cough, hemoptysis, orthopnea, SOB at rest, shortness of breath, SOB with excertion, stridor, wheezing, others Cardiovascular: denies: chest pain, dizzy spells, diaphoresis, Dyspnea on exertion, edema, irregular heart beat, left arm pain, lightheadedness, palpitations, PND, syncope, others Gastrointestinal: denies: abdomen distended, abdominal pain, blood streaked bowels, constipated, diarrhea, dysphagia, difficulty swallowing, hematemesis, melena, nausea, poor appetite, poor fluid intake, rectal bleeding, rectal pain, vomiting, others Genitourinary: denies: burning, dysuria, flank pain, frequency, hematuria, incontinence, penile discharge, penile sore, pain, testicle pain, testicle swelling, urgency, others Neurological: reports: seizure; denies: dizziness, fainting, headache, left sided numbness, left sided weakness, numbness, paresthesia, pre-existing deficit, right sided numbness, right sided weakness, speech problems, tingling, tremors, weakness, others Musculoskeletal: denies: back pain, gout, joint pain, joint swelling, muscle pain, muscle stiffness, neck pain, others Integumetry: denies: bruises, change in color, change in hair/nails, dryness, laceration, lesions, lumps, rash, wounds, others Allergic/Immunocompromised: denies: Difficulty Healing, Frequent Infections, Hives, Itching, others Hematologic/Lymphatic: denies: anemia, blood clots, easy bleeding, easy bruising, swollen glands, others Endocrine: denies: excessive hunger, excessive sweating, excessive thirst, excessive urination, flushing, intolerance to cold, intolerance to heat, unexplained weight gain, unexplained weight loss, others Psychiatric: denies: anxiety, bipolar disorder, depression, hopeless, panic disorder, schizophrenia, sleepless, suicidal, others All Other Systems: Reviewed and Negative Physical Exam General Appearance: Moderate Distress, Normal HEENT: Normal ENT Inspection, PERRL/EOMI Neck: Full Range of Motion, Non-Tender, Normal, Normal Inspection Respiratory: Chest Non-Tender, Lungs Clear, No Accessory Muscle Use, No Respiratory Distress, Normal Breath Sounds Cardiovascular: No Edema, No JVD, No Murmur, No Gallop, Normal Peripheral Pulses, Regular Rate/Rhythm Breast Exam: Deferred Gastrointestinal: No Organomegaly, Non Tender, No Pulsatile Mass, Normal Bowel Sounds, Soft Genitalia: Deferred Pelvic: Deferred Rectal: Deferred Extremities: No calf tenderness, Normal capillary refill, Normal inspection, Normal range of motion, Non-tender, No pedal edema Musculoskeletal : Apperance: Normal Neurologic: Disoriented Cerebellar Function: Normal Reflexes: Normal Skin: Dry, Normal Color, Warm Peripheral Pulses: 3+ Radial (R), 3+ Radial (L) Lymphatic: No Adenopathy Was a procedure done? Was a procedure done?: No Differential Diagnosis (SZ) Seizure: Psychogenic Seizure, Closed Head Injury, CVA/TIA X-Ray, Labs, Meds, VS Vital Signs Date Time Temp Pulse Resp B/P (MAP) Pulse Ox O2 Delivery O2 Flow Rate FiO2 11/06/24 09:03 98.3 103 22 121/78 (92) 97 11/06/24 08:58 86 Current Medications Medications (Trade) Dose Ordered Sig/Lucho Route Start Time Stop Time Status Last Admin Sodium Chloride 1,000 ml @ 1,000 mls/hr Q1H ONCE IV 11/06/24 09:15 11/06/24 10:14 11/06/24 09:13 Lorazepam (Ativan Inj) 1 mg ONCE ONCE IV 11/06/24 09:15 11/06/24 09:16 DC 11/06/24 09:13 Patient slightly disoriented. Witnessed seizure. Vitals stable. No sign of any trauma. Mild abrasion of the tongue. Is taking his medication. Establish intravenous access. Was given fluids. Was given Ativan. Reviewed his previous visit. Waiting for family. Continue monitoring. EKG reviewed does not show any acute changes. Time of 1ST Reevaluation: 10:07 Reevaluation 1ST: Unchanged Patient Education/Counseling: Diagnosis, Treatment Family Education/Counseling: No Family Present Additional Information Previous visit documents reviewed: 09/14/24 for seizure The following tests were ordered, and results were reviewed by me: CBC, BMP, UA, EKG Additional Information was gathered from interviewing the following independent historians: EMS I reviewed and agreed with the following test results read by other providers: None I discussed treatment and results with medical personnel. Departure 1 Departure Time of Disposition: :25 Impression: Primary Impression: Metabolic encephalopathy Additional Impression: Seizure Disposition: ADMITTED INPATIENT Admit to: Med Surg Condition: Guarded Critical Care Note Critical Care Time?: No Stability Stability form required: No Heart Score Heart Score: Heart Score Response (Comments) Value History Slightly Suspicious 0 EKG Normal 0 Age <45 0 Risk Factors No known risk factors 0 Troponin N/A 0 Total 0 I personally scribed for SANDRA TAYLOR MD ([email or web address]) on 11/06/24 at 09:10. Electronically submitted by Prasad Her ([email or web address]). SNADRA TAYLOR MD Nov 06, 2024 09:10
[2024-11-06] MEDS: LORazepam 2MG/ML-1ML VIAL IV ONE (09:13)
[2024-11-06] MEDS: SODIUM CHLORIDE 0.9% 1,000 ML IV ONE (09:13)
[2024-11-06 09:24] VITALS: PULSE 103; RESP 22; O2SAT 97
[2024-11-06 09:45] LABS: Basophils # (auto) 0 10 ^3/uL (0-0.2); Basophils % (auto) 0.4 % (0.0-2.0); Eosinophils # (auto) 0 10 ^3/uL (0-0.8); Eosinophils % (auto) 0.5 % (0.0-7.0); Hematocrit 47.4 % (41.0-53.0); Hemoglobin 15.9 g/dL (13.5-17.5); Lymphocytes # (auto) 2.1 10 ^3/uL (0.4-5.4); Lymphocytes % (auto) 41.8 % (10.0-50.0); Mean Corpuscular Hemoglobin 28.5 pg (28.0-32.0); Mean Corpuscular Hgb Conc. 33.5 g/dL (32.0-36.0); Mean Corpuscular Volume 85.1 fL (80.0-100.0); Monocytes # (auto) 0.3 10 ^3/uL (0-1.3); Monocytes % (auto) 5.2 % (0.0-12.0); Neutrophils # (auto) 2.6 10 ^3/uL (1.6-8.6); Neutrophils % (auto) 52.1 % (37.0-80.0); Nucleated Red Blood Cells % 0.1 %; Platelet Count (auto) 174 10^3/uL (140-450); Red Blood Cells 5.57 10^6/uL (4.5-5.90); Red Cell Distribution Width 14.1 % (11.8-14.3)
[2024-11-06 10:14] LABS: Anion Gap 14 (5-15); Carbon Dioxide 21 mmol/L (20-31); Potassium 3.8 mmol/L (3.5-5.1); Sodium 143 mmol/L (136-145)
[2024-11-06 10:15] LABS: Calcium 9.8 mg/dL (8.7-10.4)
[2024-11-06 10:20] LABS: BUN/Creatinine Ratio 13.5 (10.0-20.0); Blood Urea Nitrogen 14 mg/dL (9-23); Glucose 96 mg/dL (74-106)
[2024-11-06 10:24] LABS: Urine Bacteria None Seen /hpf (None Seen)
[2024-11-06 10:34] LABS: Urine Blood Negative /uL (Negative); Urine Clarity Clear (Clear); Urine Color Light-Yellow (Yellow); Urine Protein, UAD Negative (Negative); Urine Specific Gravity 1.021 (1.001-1.035); Urine Squamous Epithelial Cell FEW /hpf (<5); Urine Urobilinogen Normal (Negative); Urine WBC < 1 /HPF (0-3); Urine pH 5.5 (5.0-9.0)
[2024-11-06 10:38] LABS: Chloride 108 mmol/L (98-107)
[2024-11-06] MEDS ORDERED: MORPHINE SULFATE INJ 2 MG/ml SYRG IV PRN (13:00)
[2024-11-06] MEDS ORDERED: ONDANSETRON HCL 4 MG/2 ML VIAL IV PRN (13:00)
[2024-11-06] MEDS ORDERED: DOCUSATE SOD 100 MG CAP PO PRN (13:00)
[2024-11-06] MEDS ORDERED: HYDROcodone-ACET 5/325MG TAB PO PRN (13:00)
[2024-11-06] MEDS ORDERED: NITROGLYCERIN 0.4 MG SL TAB SL PRN (13:00)
[2024-11-06] MEDS ORDERED: ACETAMINOPHEN 325 MG TAB PO PRN (13:00)
--- NOTE | 2024-11-06 13:07 | DVHHP2 ---
History of Present Illness Reason for Visit: Seizure History of Present Illness Fletcher Rice is a 34-year-old male with past medical history of seizures and hypertension, who came in for a seizure. Patient states he started having seizures about 2 years ago. States he is not sure why they started. He follows with Dr. Kaye for neurology, was recently switched from keppra to Vimpat due to adverse side effects of Keppra. States he usually will go about 3 months without a seizure, but they have been more frequently recently. States he is not taking anything for his hypertension because the doctors took him off the medications. Cardiovascular: HTN SMALL EQUIPMENT OPERATOR: Seizure Past Surgical History: Appendectomy Family History: None Smoke: No ALCOHOL: none Drugs: Marijuana Lives: with Family Domestic Violence: Neg Review of Systems Constitutional: No: Fever, Chills, Sweats, Weakness, Malaise, Other Eyes: No: Pain, Vision change, Conjunctivae inflammation, Eyelid inflammation, Other, Redness ENT: No: Ear pain, Ear discharge, Nose pain, Nose discharge, Nose congestion, Mouth pain, Mouth swelling, Throat pain, Throat swelling, Other Respiratory: No: Cough, Dry, Shortness of breath, SOB with excertion, Wheezing, Hemoptysis, Pleuritic Pain, Sputum, Wheezing, Other Cardiovascular: No: Chest Pain, Palpitations, Orthopnea, Paroxysmal Noc. Dyspnea, Edema, Lt Headedness, Other Gastrointestinal: No: Nausea, Vomiting, Abdominal Pain, Diarrhea, Constipation, Melena, Hematochezia, Other Genitourinary: No Dysuria, No Frequency, No Incontinence, No Hematuria, No Retention, No Other Musculoskeletal: No: other, neck pain, shoulder pain, arm pain, back pain, hand pain, leg pain, foot pain Skin: No: Rash, Lesions, Jaundice, Bruising, Other Neurological: Seizures; No: Weakness, Numbness, Incoordination, Change in speech, Confusion, Other Allergies: Coded Allergies: NO KNOWN ALLERGIES (Unverified , 03/14/23) Exam Vital Signs Vital Signs Date Time Temp Pulse Resp B/P (MAP) Pulse Ox O2 Delivery O2 Flow Rate FiO2 11/06/24 09:24 103 22 97 Room Air* 0 21 11/06/24 09:23 98.3 121/78 (92) 98.3 General Appearance: Alert, Oriented X3, Cooperative, mild distress HEENT: Atraumatic, PERRLA, Mucous membr. moist/pink Respiratory: Clear to auscultation, Normal air movement Cardiovascular: Normal S1, Normal S2, No murmurs, Other (tachycardia) Abdominal: Normal bowel sounds, Soft, No tenderness, No hepatospenomegaly Extremities: No clubbing, No cyanosis, No edema, Normal pulses, No tender ness/swelling Skin: No rashes, No breakdown, No significant lesion Neuro: Normal gait, Normal speech, Strength at 5/5 X4 ext, Normal tone Psych/Mental Status: Mental status NL, Mood NL Labs/Xrays Labs Test 11/06/24 09:20 11/06/24 09:03 Range/Units White Blood Count 5.0 4.4-10.8 10^3/uL Red Blood Count 5.57 4.5-5.90 10^6/uL Hemoglobin 15.9 13.5-17.5 g/dL Hematocrit 47.4 41.0-53.0 % Mean Corpuscular Volume 85.1 80.0-100.0 fL Mean Corpuscular Hemoglobin 28.5 28.0-32.0 pg Mean Corpuscular Hemoglobin Concent 33.5 32.0-36.0 g/dL Red Cell Distribution Width 14.1 11.8-14.3 % Platelet Count 174 140-450 10^3/uL Mean Platelet Volume 9.3 6.9-10.8 fL Neutrophils (%) (Auto) 52.1 37.0-80.0 % Lymphocytes (%) (Auto) 41.8 10.0-50.0 % Monocytes (%) (Auto) 5.2 0.0-12.0 % Eosinophils (%) (Auto) 0.5 0.0-7.0 % Basophils (%) (Auto) 0.4 0.0-2.0 % Neutrophils # (Auto) 2.6 1.6-8.6 10 ^3/uL Lymphocytes # (Auto) 2.1 0.4-5.4 10 ^3/uL Monocytes # (Auto) 0.3 0-1.3 10 ^3/uL Eosinophils # (Auto) 0 0-0.8 10 ^3/uL Basophils # (Auto) 0 0-0.2 10 ^3/uL Nucleated Red Blood Cells 0.1 % Sodium Level 143 136-145 mmol/L Potassium Level 3.8 3.5-5.1 mmol/L Chloride Level 108 H 98-107 mmol/L Carbon Dioxide Level 21 20-31 mmol/L Anion Gap 14 5-15 Blood Urea Nitrogen 14 9-23 mg/dL Creatinine 1.04 0.700-1.30 mg/dL Glomerular Filtration Rate Calc 96 >90 mL/min BUN/Creatinine Ratio 13.5 10.0-20.0 Serum Glucose 96 74-106 mg/dL Calcium Level 9.8 8.7-10.4 mg/dL Urine Color Light-yellow Yellow Urine Clarity Clear Clear Urine pH 5.5 5.0-9.0 Urine Specific [place] 1.021 1.001-1.035 Urine Protein Negative Negative Urine Ketones Trace Negative Urine Blood Negative Negative /uL Urine Nitrite Negative Negative Urine Bilirubin Negative Negative Urine Urobilinogen Normal Negative mg/dL Urine Leukocyte Esterase Negative Negative /uL Urine RBC <1 0 - 3 /hpf Urine Microscopic WBC < 1 0-3 /HPF Urine Squamous Epithelial Cells Few <5 /hpf Urine Bacteria None seen None Seen /hpf Urine Glucose Normal Normal mg/dL Assessment/Plan Assessment/Plan Assessment: Seizure, Hypertension, Plan: Admit to Tele, Neurology consult, Seizure precautions, Regular diet, PRN Ativan, Home medications reconciled, Plan discussed with: Patient Date of Service: Nov 06, 2024 Billing Provider: KING GARCIA Common Visit Codes: [id number] INP/OBS CARE (MOD) KING GARCIA Nov 06, 2024 13:07
[2024-11-06] MEDS ORDERED: LORazepam 2MG/ML-1ML VIAL IV PRN (13:45)
[2024-11-06 19:40] VITALS: PULSE 69; RESP 14; O2SAT 96
[2024-11-06] MEDS: LACOSAMIDE 50 MG TAB PO SCH (21:54)
[2024-11-06] MEDS ORDERED: LACOSAMIDE 200 MG PO SCH (22:00)
[2024-11-07 07:07] LABS: Basophils # (auto) 0 10 ^3/uL (0-0.2); Basophils % (auto) 0.3 % (0.0-2.0); Eosinophils # (auto) 0 10 ^3/uL (0-0.8); Eosinophils % (auto) 0.4 % (0.0-7.0); Hematocrit 43.4 % (41.0-53.0); Hemoglobin 15.2 g/dL (13.5-17.5); Lymphocytes # (auto) 2.7 10 ^3/uL (0.4-5.4); Mean Corpuscular Hemoglobin 29.4 pg (28.0-32.0); Mean Corpuscular Hgb Conc. 35.1 g/dL (32.0-36.0); Mean Corpuscular Volume 83.6 fL (80.0-100.0); Monocytes # (auto) 0.5 10 ^3/uL (0-1.3); Monocytes % (auto) 6.9 % (0.0-12.0); Neutrophils # (auto) 4.1 10 ^3/uL (1.6-8.6); Neutrophils % (auto) 55.4 % (37.0-80.0); Nucleated Red Blood Cells % 0.2 %; Platelet Count (auto) 180 10^3/uL (140-450); Red Blood Cells 5.19 10^6/uL (4.5-5.90); Red Cell Distribution Width 14.1 % (11.8-14.3); White Blood Cell 7.4 10^3/uL (4.4-10.8)
[2024-11-07 07:15] LABS: Alanine Aminotransferase 30 U/L (7-40); Albumin 4.5 g/dL (3.2-4.8); Alkaline Phosphatase 61 U/L (46-116); Anion Gap 8 (5-15); Aspartate Aminotransferase 15 U/L (13-40); BUN/Creatinine Ratio 13.7 (10.0-20.0); Bilirubin, Total 0.6 mg/dL (0.2-1.0); Blood Urea Nitrogen 13 mg/dL (9-23); Carbon Dioxide 28 mmol/L (20-31); Chloride 105 mmol/L (98-107); Glucose 92 mg/dL (74-106); Sodium 141 mmol/L (136-145)
[2024-11-07 07:30] VITALS: PULSE 54; RESP 14; O2SAT 99
[2024-11-07 08:00] VITALS: BP 135/76; PULSE 54; RESP 14; TEMP 98.2; O2SAT 99
== END 2024-11-07 11:49 | disposition left against medical advice (07) | DRG 53 ==
LOC: ER 08:55 → EDBD 08:55 → OVERFLOW 12:59
PROVIDERS: ADMIT Nurse Practitioner Acute Care; ATTEND Nurse Practitioner Acute Care
DX: R56.9 Unspecified convulsions (principal); F12.90 Cannabis use, unspecified, uncomplicated; I10 Essential (primary) hypertension; Z53.29 Procedure and treatment not carried out because of patient's decision for other reasons; Z83.49 Family history of other endocrine, nutritional and metabolic diseases
CPT/HCPCS: 36415; 80048; 80053; 81001; 85025; 93005; 96361; 96374; G0378

== ENCOUNTER 2025-03-07 18:08 | Emergency (ER) | payer MEDICAID ==
[~2025-03-07] VITALS: Ht 180.3 cm; Wt 105.0 kg
[~2025-03-07 18:08] MED LIST changes: -KEP500T PO; -LEVE100012 PO; -LISI2.5T47 PO
--- NOTE | 2025-03-07 19:15 | ED.PDOC ---
Back pain HPI HPI Comments PT REPORTS RIGHT KNEE PAIN STARTED TODAY AFTER SITTING ON FLOOR ON KNEE X 2O MINS. DENIES HITTING IT, JUST APPLIED WEIGHT FOR LONG PERIOD OF TIME. NO SWELLING OR DEFORMITY NOTED, AMBULATES WITH STEADY GAIT. DENIES NUMBNESS/WEAKNESS. Chief Complaint: Lower Extremity Time Seen by MD: 18:25 Primary Care Provider: UNKNOWN Reviewed Notes: Nurses Notes, Medications, Allergies Allergies: Coded Allergies: NO KNOWN ALLERGIES (Unverified , 03/14/23) Home Meds Active Scripts Lacosamide (Vimpat) 200 Mg Tab, 200 MG PO BID for 15 Days, #30 TAB Prov:HILARIO SOLOMON MD 09/14/24 Information Source: Patient Mode of Arrival: Ambulatory Past Medical History PAST MEDICAL HISTORY: HTN, Seizures Surgical History: Appendectomy Family History Family History: Reviewed,noncontributory to illness, Family hx of HTN Family History (Other): hyperlipidemia Social History Smoker: Non-Smoker Alcohol: Denies ETOH Use Drugs: Marijuana Lives In: Home Constitutional: denies: chills, diaphoresis, fatigue, fever, malaise, sweats, weakness, others EENTM: denies: blurred vision, double vision, ear bleeding, ear discharge, ear drainage, ear pain, ear ringing, eye pain, eye redness, hearing loss, mouth pain, mouth swelling, nasal discharge, nose bleeding, nose congestion, nose pain, photophobia, tearing, throat pain, throat swelling, voice changes, others Respiratory: denies: cough, hemoptysis, orthopnea, SOB at rest, shortness of breath, SOB with excertion, stridor, wheezing, others Cardiovascular: denies: chest pain, dizzy spells, diaphoresis, Dyspnea on exertion, edema, irregular heart beat, left arm pain, lightheadedness, palpitations, PND, syncope, others Gastrointestinal: denies: abdomen distended, abdominal pain, blood streaked bowels, constipated, diarrhea, dysphagia, difficulty swallowing, hematemesis, melena, nausea, poor appetite, poor fluid intake, rectal bleeding, rectal pain, vomiting, others Genitourinary: denies: burning, dysuria, flank pain, frequency, hematuria, incontinence, penile discharge, penile sore, pain, testicle pain, testicle swelling, urgency, others Neurological: denies: dizziness, fainting, headache, left sided numbness, left sided weakness, numbness, paresthesia, pre-existing deficit, right sided numbness, right sided weakness, seizure, speech problems, tingling, tremors, weakness, others Musculoskeletal: reports: joint pain; denies: back pain, gout, joint swelling, muscle pain, muscle stiffness, neck pain, others Integumetry: denies: bruises, change in color, change in hair/nails, dryness, laceration, lesions, lumps, rash, wounds, others Allergic/Immunocompromised: denies: Difficulty Healing, Frequent Infections, Hives, Itching, others Hematologic/Lymphatic: denies: anemia, blood clots, easy bleeding, easy bruising, swollen glands, others Endocrine: denies: excessive hunger, excessive sweating, excessive thirst, excessive urination, flushing, intolerance to cold, intolerance to heat, unexplained weight gain, unexplained weight loss, others Psychiatric: denies: anxiety, bipolar disorder, depression, hopeless, panic disorder, schizophrenia, sleepless, suicidal, others Physical Exam General Appearance: No Apparent Distress, Normal HEENT: Pharynx Normal Neck: Full Range of Motion, Non-Tender Respiratory: Lungs Clear, No Respiratory Distress, Normal Breath Sounds Cardiovascular: No Murmur, Normal Peripheral Pulses, Regular Rate/Rhythm Breast Exam: Deferred Gastrointestinal: Non Tender, Soft Genitalia: Deferred Pelvic: Deferred Rectal: Deferred Extremities: Normal inspection Musculoskeletal : Location: Right Extremity Location: Knee (TENDERNESS ABOUT THE KNEE NO NOTED EDEMA OR GROSS VISIBLE EXTERNAL TRAUMA NO NOTED ABRASIONS LACERATIONS OR ECCHYMOSIS. STRENGTH SENSORY MOTION INTACT. NEGATIVE ALONDRA'S NEGATIVE DRAWER EXAM NEGATIVE BALLOTTEMENT) Apperance: Normal Neurologic: Alert, No Motor Deficits, Normal Affect, Normal Mood, No Sensory Deficits Cerebellar Function: Normal Reflexes: Normal Skin: Dry, Normal Color, Warm Lymphatic: No Adenopathy Was a procedure done? Was a procedure done?: No Back Pain Differential Dx Differential Diagnosis: Fracture, Musculoskeletal Pain X-Ray, Labs, Meds, VS Vital Signs Date Time Temp Pulse Resp B/P (MAP) Pulse Ox O2 Delivery O2 Flow Rate FiO2 03/07/25 19:40 97.6 61 16 135/89 (104) 96 97.6 03/07/25 19:32 98 Room Air* 0 21 03/07/25 18:53 97.4 69 18 142/86 (104) 97 97.4 Current Medications Medications (Trade) Dose Ordered Sig/Lucho Route Start Time Stop Time Status Last Admin Ibuprofen (Motrin Tablet) 800 mg ONCE ONCE PO 03/07/25 19:45 03/07/25 19:46 DC 03/07/25 19:41 X-Ray, Labs, Meds, VS Comment X-ray shows no acute fracture or osseous lesions subluxations does show small joint effusion an old avulsion fracture but no new concerns. Script trial of Medrol Dosepak advised patient to take medications as prescribed side effects discussed. Advised on rice. Advised to follow up with PCP in 2-3 days as necessary ER return precautions given patient indicates understanding agrees with discharge plan of care. Time of 1ST Reevaluation: 18:25 Reevaluation 1ST: Unchanged Time of 2ND Reevaluation: 20:42 Reevaluation 2ND: Improved Patient Education/Counseling: Diagnosis, Treatment, Prognosis, Need For Follow Up Family Education/Counseling: Diagnosis, Treatment, Prognosis, Need For Follow Up SEPSIS Sepsis Screen Date sepsis recognized/suspect: Mar 07, 2025 Time Sepsis recognized/suspect: 1847 Recent Procedure: No On Antibiotic Therapy: No Respiratory Rate >20: No Heart Rate >90: No Temp<36 C (96.8 F) or >38.3 C: No SBP <90 or MAP <65 mmHG: No New Acute Mental Status Change: No Is the patient on CPAP, BIPAP,: No Physician Orders R Knee 3v Xray (03/07/25 19:00) Vital Signs Date Time Temp Pulse Resp B/P (MAP) Pulse Ox O2 Delivery O2 Flow Rate FiO2 03/07/25 19:40 97.6 61 16 135/89 (104) 96 97.6 03/07/25 19:32 98 Room Air* 0 21 03/07/25 18:53 97.4 69 18 142/86 (104) 97 97.4 Medications Medications Dose Ordered Sig/Lucho Route Start Time Stop Time Status Last Admin Dose Admin Ibuprofen 800 mg ONCE ONCE PO 03/07/25 19:45 03/07/25 19:46 DC 03/07/25 19:41 Departure 1 Departure Time of Disposition: 20:41 Impression: Primary Impression: Joint effusion of knee Qualified Codes: M25.461 - Effusion, right knee Disposition: 01 HOME / SELF CARE / HOMELESS Condition: Stable e-Prescriptions Methylprednisolone (Medrol Dosepak) 4 Mg Castro 4 MG PO UD, #21 TAB UAD Prov: MONET LEPE 03/07/25 Discharged With: Significant Other Critical Care Note Critical Care Time?: No Stability Stability form required: MONET Rios Mar 07, 2025 19:15
[2025-03-07 19:32] VITALS: O2SAT 98
[2025-03-07] MEDS: KETOROLAC TROMETH 60MG/2ML VIAL IM ONE (19:38)
[2025-03-07 19:40] VITALS: TEMP 97.6
[2025-03-07] MEDS: IBUPROFEN 800 MG TAB PO ONE (19:41)
--- NOTE | 2025-03-07 20:27 | DVH ---
EXAM: XY R KNEE 3V XRAY HISTORY: right knee pain/injury COMPARISON: None TECHNIQUE: 3 views of the right knee were performed. FINDINGS: There is no acute fracture dislocation. There is a small suprapatellar joint fusion. Well corticated ossicles along the medial aspect of the tibial plateau. 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 IMPRESSION: 1. No acute abnormality 2. Sequelae of old medial collateral ligament- avulsion injury 3. 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
[2025-03-07] MEDS ORDERED: METH4PAK PO (20:46)
[2025-03-07 21:05] VITALS: BP 126/78; PULSE 76; RESP 18; O2SAT 98
== END 2025-03-07 21:18 | disposition home or self-care (01) ==
LOC: ER 18:08
DX: M25.461 Effusion, right knee (principal); I10 Essential (primary) hypertension; Z79.899 Other long term (current) drug therapy; Z90.49 Acquired absence of other specified parts of digestive tract
CPT/HCPCS: 73562; J1885